=== PATIENT | male | born 1955 | race Caucasian/White ===

== ENCOUNTER → 2018-01-03 | Outpatient (CLI) | payer OTHER ==
[~2018-01-03] MED LIST: CRESTOR10 MG; GLUCOPHAGE XR500 MG; METFORMIN HCL500 MG; NOVOLIN N100 UNITS/
== END | disposition home or self-care (01) ==
LOC: NUCLEAR 07:00
DX: I11.9 Hypertensive heart disease without heart failure (principal); E11.9 Type 2 diabetes mellitus without complications; E78.4 Other hyperlipidemia; I25.10 Atherosclerotic heart disease of native coronary artery without angina pectoris
CPT/HCPCS: 78452; 93017; A9500

== ENCOUNTER 2018-03-21 10:28 | Emergency (ER) | payer OTHER ==
[~2018-03-21] VITALS: Ht 172.7 cm; Wt 81.6 kg
[2018-03-21] MEDS ORDERED: FORTAMET1000 MG PO (10:47)
[2018-03-21] MEDS ORDERED: ENALAPRIL MALE2.5 MG PO (10:47)
[2018-03-21] MEDS ORDERED: ASPIR 8181 MG PO (10:47)
[2018-03-21] MEDS ORDERED: ZOCOR20 MG PO (10:48)
== END 2018-03-21 12:32 | disposition home or self-care (01) ==
LOC: ER 10:28
DX: N40.0 Benign prostatic hyperplasia without lower urinary tract symptoms (principal); R10.2 Pelvic and perineal pain

== ENCOUNTER 2019-05-03 10:09 | Emergency (ER) | payer OTHER ==
[~2019-05-03] VITALS: Ht 172.7 cm; Wt 86.2 kg
[~2019-05-03 10:09] MED LIST changes: +ASPIR 8181 MG PO; +ENALAPRIL MALE2.5 MG PO; +FORTAMET1000 MG PO; +ZOCOR20 MG PO
[2019-05-03] MEDS ORDERED: GLIMEPIRIDE4 MG (10:25)
== END 2019-05-03 12:06 | disposition home or self-care (01) ==
LOC: ER 10:09 → CPU-OBS 10:59 → ER 12:06
DX: R07.89 Other chest pain (principal)
CPT/HCPCS: G0378; G0379; 93005

== ENCOUNTER 2020-09-23 08:46 | Outpatient (CLI) | payer OTHER ==
[~2020-09-23 08:46] MED LIST changes: +GLIMEPIRIDE4 MG
== END 2020-09-23 08:55 | disposition home or self-care (01) ==
LOC: NUCLEAR 08:46
PROVIDERS: ATTEND Internal Medicine Cardiovascular Disease
DX: I35.0 Nonrheumatic aortic (valve) stenosis (principal)

== ENCOUNTER 2021-03-10 10:07 | Outpatient (CLI) | payer OTHER | END 2021-03-10 10:17 | disposition home or self-care (01) | LOC: NUCLEAR 10:07 | PROVIDERS: ATTEND Internal Medicine Cardiovascular Disease | DX: I35.0 Nonrheumatic aortic (valve) stenosis (principal) ==

== ENCOUNTER 2022-02-19 12:16 | Emergency (ER) | payer OTHER ==
[~2022-02-19] VITALS: Ht 172.7 cm; Wt 84.8 kg
== END 2022-02-19 15:34 | disposition home or self-care (01) ==
LOC: ER 12:16
DX: L02.415 Cutaneous abscess of right lower limb (principal); E11.9 Type 2 diabetes mellitus without complications; Z79.84 Long term (current) use of oral hypoglycemic drugs; I10 Essential (primary) hypertension

== ENCOUNTER → 2022-06-15 | Outpatient (CLI) | payer OTHER | END | disposition home or self-care (01) | LOC: NUCLEAR 07:10 | PROVIDERS: ATTEND Internal Medicine Cardiovascular Disease | DX: I10 Essential (primary) hypertension (principal) ==

== ENCOUNTER 2023-08-23 07:37 | Outpatient (CLI) | payer OTHER | END 2023-08-23 07:38 | disposition home or self-care (01) | LOC: NUCLEAR 07:37 | PROVIDERS: ATTEND Internal Medicine | DX: I35.0 Nonrheumatic aortic (valve) stenosis (principal) ==